=== PATIENT | male | born 1950 | race Caucasian/White ===

== ENCOUNTER → 2017-01-16 | Outpatient (CLI) | payer MEDICARE ==
[~2017-01-16] MED LIST: 'XANAX1 MG PO; ANTIVERT/2525 MG PO; CLONAZEPAM1 MG PO; CYCLOBENZAPRINE5 M3 PO; DAYPRO600 M1 PO; EFFEXOR XR150 M1 PO; HYDROCODONE-IB1 EACH PO; KEFLEX 500 MG E2 CAP PO; LISINOPRIL10 M1 PO; METFORMIN HCL500 MG PO; METFORMIN500 MG PO; MOTRIN600 MG PO; MOTRIN800 MG PO; PREDNISONE10 MG PO; PRISTIQ50 MG PO; TRAMADOL HCL50 MG PO; VENLAFAXINE H37.5 M5 PO; VENLAFAXINE HY150 M2 PO; VICOPROFEN 2001 EACH PO; VITAMIN D50000 I3 PO; XANAX0.5 MG PO; ZESTRIL20 MG PO; ZOFRAN ODT8 MG PO
[2017-01-16 08:56] LABS: BASO # 0.1 10*3/uL (0.0-0.1); BASO % 0.7 % (0.0-1.0); EOS # 0.1 10*3/uL (0.0-0.4); EOS % 1.8 % (1.0-4.0); HEMATOCRIT 42.5 % (42.0-52.0); IG # 0.1 10*3/uL (0.0-0.1); LYMPH # 1.8 10*3/uL (1.3-4.4); MEAN CELL VOLUME 85.5 fl (80.0-94.0); MEAN CORPUSCULAR HGB 28.2 pg (27.0-31.0); MEAN CORPUSCULAR HGB CONC 32.9 g/dl (33.0-37.0); MONO # 0.5 10*3/uL (0.1-1.0); MONO % 6.8 % (3.0-9.0); NEUT # 5.1 10*3/uL (2.3-7.9); NEUT % 65.9 % (47.0-73.0); PLATELET COUNT AUTOMATED 235 10*3/uL (130-400); RED BLOOD COUNT 4.97 10*6/uL (4.50-5.90); RED CELL DISTRI WIDTH 14.6 % (0-14.5); WHITE BLOOD COUNT 7.7 10*3/uL (4.8-10.8)
[2017-01-16 09:05] LABS: PROTHROMBIN TIME 10.2 SECONDS (9.0-12.4)
[2017-01-16 09:18] LABS: ALBUMIN 3.2 gm/dl (3.1-4.5); ALKALINE PHOSPHATASE 96 U/L (45-117); BILIRUBIN, DIRECT < 0.1 mg/dL (0.0-0.2); BILIRUBIN, TOTAL 0.2 mg/dl (0.2-1.0); BUN 22 mg/dl (7-24); CARBON DIOXIDE 24 mmol/L (21-32); CHLORIDE 107 mmol/L (98-107); CHOLESTEROL 176 mg/dL (<200); EST GLOM FILT AFRICAN AMERICAN > 60 ml/min; GLUCOSE 186 mg/dL (65-99); HDL CHOLESTEROL 44 mg/dl (40-60); LDL CHOLESTEROL 87 mg/dL (9-159); PHOSPHOROUS 2.4 mg/dL (2.5-4.9); POTASSIUM 3.9 mmol/L (3.5-5.1); SGOT/AST 17 IU/L (3-35); SGPT/ALT 26 U/L (12-78); SODIUM 143 mmol/L (136-145); TOTAL PROTEIN 7.1 gm/dL (6.4-8.2); TRIGLYCERIDES 226 mg/dl (<150); VLDL CHOLESTEROL 45 mg/dL (6-40)
[2017-01-16 09:54] LABS: HEMOGLOBIN A1c 6.8 % (4.8-5.6)
[2017-01-16 09:59] LABS: FOLIC ACID > 24.00 ng/mL (>5.38)
== END | disposition home or self-care (01) ==
LOC: LAB 08:37
PROVIDERS: Internal Medicine
DX: Z00.00 Encounter for general adult medical examination without abnormal findings (principal); J44.9 Chronic obstructive pulmonary disease, unspecified; E11.9 Type 2 diabetes mellitus without complications; E78.5 Hyperlipidemia, unspecified; M79.609 Pain in unspecified limb; M79.89 Other specified soft tissue disorders

== ENCOUNTER 2017-10-02 10:32 | Emergency (ER) | payer OTHER, MEDICARE ==
[~2017-10-02] VITALS: Ht 182.8 cm; Wt 83.9 kg
[2017-10-02 10:32] VITALS: BP 144/80
[2017-10-02 11:15] LABS: BASO # 0.1 10*3/uL (0.0-0.1); BASO % 0.9 % (0.0-1.0); EOS # 0.2 10*3/uL (0.0-0.4); EOS % 2.4 % (1.0-4.0); HEMATOCRIT 39.9 % (42.0-52.0); HEMOGLOBIN 13.5 g/dl (14.0-18.0); LYMPH # 2.5 10*3/uL (1.3-4.4); LYMPH % 25.4 % (27.0-41.0); MEAN CELL VOLUME 85.4 fl (80.0-94.0); MEAN CORPUSCULAR HGB 28.9 pg (27.0-31.0); MEAN CORPUSCULAR HGB CONC 33.8 g/dl (33.0-37.0); MONO # 0.8 10*3/uL (0.1-1.0); MONO % 8.2 % (3.0-9.0); NEUT # 6.1 10*3/uL (2.3-7.9); NEUT % 62.6 % (47.0-73.0); PLATELET COUNT AUTOMATED 266 10*3/uL (130-400); RED BLOOD COUNT 4.67 10*6/uL (4.50-5.90); RED CELL DISTRI WIDTH 13.7 % (0-14.5); WHITE BLOOD COUNT 9.8 10*3/uL (4.8-10.8)
[2017-10-02 11:23] LABS: ACT PARTIAL THROMBO TIME 24.6 SECONDS (20.8-31.5)
[2017-10-02 11:28] LABS: ALBUMIN 3.3 gm/dl (3.1-4.5); ALKALINE PHOSPHATASE 94 U/L (45-117); BUN 20 mg/dl (7-24); CHLORIDE 106 mmol/L (98-107); CREATININE 0.93 mg/dL (0.70-1.30); POTASSIUM 3.9 mmol/L (3.5-5.1); SGOT/AST 22 IU/L (3-35); SGPT/ALT 24 U/L (12-78); SODIUM 139 mmol/L (136-145); TOTAL PROTEIN 6.9 gm/dL (6.4-8.2)
== END 2017-10-02 11:23 | disposition short-term general hospital (02) ==
LOC: ED 10:32
PROVIDERS: Emergency Medicine
DX: S01.01XA Laceration without foreign body of scalp, initial encounter (principal); S09.90XA Unspecified injury of head, initial encounter; M25.512 Pain in left shoulder; G89.29 Other chronic pain; E78.5 Hyperlipidemia, unspecified; E11.9 Type 2 diabetes mellitus without complications; E66.9 Obesity, unspecified; Z79.899 Other long term (current) drug therapy; Z90.89 Acquired absence of other organs; W22.8XXA Striking against or struck by other objects, initial encounter; Y93.89 Activity, other specified; Y92.69 Other specified industrial and construction area as the place of occurrence of the external cause; Y99.9 Unspecified external cause status

== ENCOUNTER 2017-10-07 13:02 | Emergency (ER) | payer MEDICARE ==
[~2017-10-07] VITALS: Ht 187.9 cm; Wt 113.4 kg
[2017-10-07 13:07] VITALS: BP 132/70
== END 2017-10-07 14:51 | disposition home or self-care (01) ==
LOC: ED 13:02
DX: S52.022A Displaced fracture of olecranon process without intraarticular extension of left ulna, initial encounter for closed fracture (principal); F41.9 Anxiety disorder, unspecified; G89.29 Other chronic pain; E11.9 Type 2 diabetes mellitus without complications; E78.5 Hyperlipidemia, unspecified; I10 Essential (primary) hypertension; F32.9 Major depressive disorder, single episode, unspecified; F43.10 Post-traumatic stress disorder, unspecified; Z79.899 Other long term (current) drug therapy; Z90.89 Acquired absence of other organs; V83.9XXA Unspecified occupant of special industrial vehicle injured in nontraffic accident, initial encounter; Y93.89 Activity, other specified; Y92.89 Other specified places as the place of occurrence of the external cause; Y99.8 Other external cause status

== ENCOUNTER 2018-01-27 15:07 | Inpatient (IN) | payer MEDICARE ==
[~2018-01-27] VITALS: Ht 180.3 cm; Wt 114.3 kg
[2018-01-27] VITALS (7 sets, daily range): BP systolic 140–200; BP diastolic 55–80
--- NOTE | ~2018-01-27 | CON ---
[place], [place] REPORT OF CONSULTATION NAME: [id number] UNIT #: [id number] ROOM: 406 DOCTOR: JUNIOR EARL MD BIRTHDATE: [birth year] DOS: 01/28/2018 REASON FOR CONSULTATION: Abnormal EKG and chest pain. HISTORY OF PRESENT ILLNESS: The patient, a 67-year-old gentleman with history of hypertension, diabetes, who presented to the hospital with chest pain. Apparently, he woke up with chest pain in the morning in the midsternal area. He described this pain as a constant burning pain in the epigastric area, similar to his previous acid reflux. This pain lasted for several minutes and relieved on its own. He has a history of acid reflux and peptic ulcer disease, but does not take any medications. He presented to the hospital for further evaluation. Cardiology was consulted due to his chest pain and also sinus bradycardia noted on EKG. At the time of my examination, the patient is alert, oriented. Denies any dizziness, chest pain. No palpitations, no dizziness, no orthopnea, no PND. No bladder or bowel symptoms. No nausea, vomiting, or diarrhea. No tingling, numbness or weakness. No headache. No dizziness. No cough or hemoptysis. REVIEW OF SYSTEMS: Review of the 10 system negative except as mentioned above. PAST MEDICAL HISTORY: 1. Hypertension. 2. Acid reflux. 3. Sinus bradycardia. 4. Diabetes type 2. 5. Dyslipidemia. 6. History of PTSD. PAST SURGICAL HISTORY: Tonsillectomy and a decompression of the ulnar nerve. SOCIAL HISTORY: The patient does not smoke or drink, does not use illicit drugs. FAMILY HISTORY: Father from gunshot wound. Mother had a stroke. ALLERGIES: No known drug allergies. HOME MEDICATIONS: Reviewed. Pertinent cardiac medications include lisinopril. PHYSICAL EXAMINATION: VITAL SIGNS: Blood pressure 150/70, pulse 84, respiration rate 20, weight 114 pounds, BMI 35. GENERAL: Alert, comfortable, in no acute distress. HEENT: Pupils round, equal. No jaundice. Tongue was moist and pharynx was clear. NECK: Supple, no distended neck veins, no carotid bruit. CHEST: Symmetrical, nontender. LUNGS: Clear to auscultation bilaterally. HEART: Regular rhythm, no S3, no palpable thrills. ABDOMEN: Benign, nontender. Bowel sounds normal. [place], [place] REPORT OF CONSULTATION NAME: FELIPA DINERO UNIT #: [id number] ROOM: [facility] DOCTOR: JUNIOR EARL MD BIRTHDATE: [birth year] EXTREMITIES: Showed no edema. Distal pulses palpable. SKIN: Warm and dry. No cyanosis, no clubbing. RECTAL: Deferred. GENITOURINARY: Deferred. PSYCHIATRIC: The patient is alert, oriented. REVIEW OF THE DIAGNOSTIC TESTS: EKG showed sinus rhythm, sinus bradycardia. His TSH was normal. Troponin was normal. CK, CK-MB normal. Potassium 4, creatinine 0.88. Hemoglobin 13.3. IMPRESSION: 1. Chest pain, atypical, appears to be gastrointestinal related. 2. Sinus bradycardia, asymptomatic, thyroid function tests are normal. The patient was not on any AV blocking medications and avoid AV blocking medications. If the patient develops symptomatic bradycardia in the future, he will need a permanent pacemaker. 3. Hypertension. Monitor his blood pressures. 4. Diabetes type 2. 5. Peptic ulcer disease. 6. Non-morbid obesity. RECOMMENDATIONS: 1. Continue current medications. Risk factor modification was discussed. 2. The patient can be discharged home from a cardiac standpoint today. If he stays in the hospital today, I would recommend exercise nuclear stress test due to his coronary artery disease risk factors including diabetes. If the patient is discharged, this can be done as outpatient. JUNIOR EARL MD CM:CONSTR:REPORT OF CONSULTATION 0637 01/29/18 2010 interface
[2018-01-27 15:32] LABS: BASO # 0.1 10*3/uL (0.0-0.1); BASO % 0.7 % (0.0-1.0); EOS # 0.2 10*3/uL (0.0-0.4); EOS % 2.3 % (1.0-4.0); HEMATOCRIT 41.4 % (42.0-52.0); HEMOGLOBIN 13.3 g/dl (14.0-18.0); LYMPH # 2.2 10*3/uL (1.3-4.4); LYMPH % 22.6 % (27.0-41.0); MEAN CORPUSCULAR HGB 26.3 pg (27.0-31.0); MEAN CORPUSCULAR HGB CONC 32.1 g/dl (33.0-37.0); MEAN PLATELET VOLUME 10.5 fl (9.6-12.3); MONO # 0.6 10*3/uL (0.1-1.0); MONO % 6.3 % (3.0-9.0); NEUT # 6.7 10*3/uL (2.3-7.9); NEUT % 67.6 % (47.0-73.0); PLATELET COUNT AUTOMATED 273 10*3/uL (130-400); RED BLOOD COUNT 5.05 10*6/uL (4.50-5.90); RED CELL DISTRI WIDTH 15.8 % (0-14.5); WHITE BLOOD COUNT 9.9 10*3/uL (4.8-10.8)
[2018-01-27 15:41] LABS: ACT PARTIAL THROMBO TIME 24.5 SECONDS (20.8-31.5)
[2018-01-27 15:57] LABS: ALBUMIN 3.3 gm/dl (3.1-4.5); ALKALINE PHOSPHATASE 90 U/L (45-117); BUN 21 mg/dl (7-24); CHLORIDE 104 mmol/L (98-107); CREATININE 0.96 mg/dL (0.70-1.30); POTASSIUM 3.6 mmol/L (3.5-5.1); SGOT/AST 18 IU/L (3-35); SGPT/ALT 22 U/L (12-78); SODIUM 138 mmol/L (136-145); TOTAL PROTEIN 7.2 gm/dL (6.4-8.2)
[2018-01-27 16:01] LABS: TROPONIN I < 0.015 ng/ml (<0.045)
[2018-01-27] MEDS ORDERED: EFFEXOR XR75 M1 PO (20:58)
[2018-01-27] MEDS ORDERED: XANAX0.5 MG PO (20:59)
[2018-01-27] MEDS ORDERED: ABILIFY10 MG PO (21:00)
[2018-01-27] MEDS ORDERED: VITAMIN B COMP1 EAC1 PO (21:07)
[2018-01-28 03:54] VITALS: BP 135/58
[2018-01-28 07:53] LABS: BASO # 0.1 10*3/uL (0.0-0.1); BASO % 0.7 % (0.0-1.0); EOS # 0.2 10*3/uL (0.0-0.4); EOS % 2.5 % (1.0-4.0); HEMATOCRIT 41.7 % (42.0-52.0); HEMOGLOBIN 13.3 g/dl (14.0-18.0); LYMPH # 1.5 10*3/uL (1.3-4.4); LYMPH % 19.6 % (27.0-41.0); MEAN CELL VOLUME 81.9 fl (80.0-94.0); MEAN CORPUSCULAR HGB 26.1 pg (27.0-31.0); MEAN CORPUSCULAR HGB CONC 31.9 g/dl (33.0-37.0); MEAN PLATELET VOLUME 10.7 fl (9.6-12.3); MONO # 0.5 10*3/uL (0.1-1.0); MONO % 6.3 % (3.0-9.0); NEUT # 5.2 10*3/uL (2.3-7.9); NEUT % 70.2 % (47.0-73.0); PLATELET COUNT AUTOMATED 237 10*3/uL (130-400); RED BLOOD COUNT 5.09 10*6/uL (4.50-5.90); RED CELL DISTRI WIDTH 15.8 % (0-14.5); WHITE BLOOD COUNT 7.5 10*3/uL (4.8-10.8)
[2018-01-28 08:00] VITALS: BP 150/74
[2018-01-28 08:19] LABS: BUN 21 mg/dl (7-24); CHLORIDE 106 mmol/L (98-107); CHOLESTEROL 185 mg/dL (<200); CREATININE 0.88 mg/dL (0.70-1.30); FREE T4 0.97 ng/dl (0.76-1.46); HDL CHOLESTEROL 33 mg/dl (40-60); LDL CHOLESTEROL 113 mg/dL (9-159); PHOSPHOROUS 2.8 mg/dL (2.5-4.9); SODIUM 141 mmol/L (136-145); TRIGLYCERIDES 193 mg/dl (<150); VLDL CHOLESTEROL 39 mg/dL (6-40)
[2018-01-28 08:31] LABS: ACT PARTIAL THROMBO TIME 24.9 SECONDS (20.8-31.5)
[2018-01-28 09:19] LABS: VITAMIN D, 25-HYDROXY 25.8 ng/mL (30-100)
== END 2018-01-28 12:58 | disposition home or self-care (01) | DRG 205 ==
LOC: ED 15:07 → EDHOLD 17:37 → 4E 17:44
PROVIDERS: Emergency Medicine; Internal Medicine
DX: M94.0 Chondrocostal junction syndrome [Tietze] (principal); J18.9 Pneumonia, unspecified organism; I44.2 Atrioventricular block, complete; E44.0 Moderate protein-calorie malnutrition; E11.69 Type 2 diabetes mellitus with other specified complication; J44.9 Chronic obstructive pulmonary disease, unspecified; F33.9 Major depressive disorder, recurrent, unspecified; I10 Essential (primary) hypertension; E66.01 Morbid (severe) obesity due to excess calories; D64.9 Anemia, unspecified; K21.9 Gastro-esophageal reflux disease without esophagitis; L98.499 Non-pressure chronic ulcer of skin of other sites with unspecified severity; E78.5 Hyperlipidemia, unspecified; G89.29 Other chronic pain; F41.9 Anxiety disorder, unspecified; E55.9 Vitamin D deficiency, unspecified; F43.10 Post-traumatic stress disorder, unspecified; Z87.11 Personal history of peptic ulcer disease; Z79.899 Other long term (current) drug therapy; Z91.5 Personal history of self-harm; Z82.3 Family history of stroke; Z81.8 Family history of other mental and behavioral disorders; Z68.35 Body mass index [BMI] 35.0-35.9, adult

== ENCOUNTER → 2018-02-04 | Outpatient (CLI) | payer MEDICARE ==
[~2018-02-04] MED LIST changes: +ABILIFY10 MG PO; +EFFEXOR XR75 M1 PO; +VITAMIN B COMP1 EAC1 PO
--- NOTE | ~2018-02-04 | ST ---
[place], [place] EXERCISE STRESS TEST REPORT NAME: FELIPA DINERO [facility] #: [id number] UNIT #: [id number] ROOM: DOCTOR: LEEROY KENT MD BIRTHDATE: [birth year] DOS: 02/04/2018 PHARMACOLOGIC STRESS TEST. INDICATIONS: Chest discomfort. PROCEDURE: The patient was given rapid infusion of regadenoson 0.4 mg intravenously followed by a saline flush. The resting electrocardiogram showed sinus bradycardia with rare PVCs. During the infusion, he experienced dyspnea, but no other significant symptoms. He had a normal heart rate increase from a resting heart rate of 53 to a peak of 70 beats per minute. The resting blood pressure of 128/62 fell to 102/68. He had no diagnostic electrocardiographic changes. Forty seconds after the infusion of regadenoson, he was given radionuclide intravenously. IMPRESSION: 1. Well-tolerated infusion of regadenoson. 2. Radionuclide administered. Please see the separate imaging report for further details of the patient's stress test results. LEEROY KENT MD CM:STRESS:EXERCISE STRESS TEST REPORT [id number] LEEROY KENT MD
== END | disposition home or self-care (01) ==
LOC: CARD 01:27
DX: R07.89 Other chest pain (principal)

== ENCOUNTER 2018-02-12 15:01 | Emergency (ER) | payer MEDICARE ==
[~2018-02-12] VITALS: Ht 180.3 cm; Wt 114.3 kg
[2018-02-12] MEDS ORDERED: AMOXICILLIN500 M2 PO (15:18)
[2018-02-12 15:19] VITALS: BP 156/62
[2018-02-12] MEDS ORDERED: PROAIR HFA8.5 GM INH (16:30)
[2018-02-12] MEDS ORDERED: ZITHROMAX250 MG PO (16:30)
[2018-02-12] MEDS ORDERED: PREDNISONE20 M1 PO (16:30)
== END 2018-02-12 16:42 | disposition home or self-care (01) ==
LOC: ED 15:01
DX: J20.9 Acute bronchitis, unspecified (principal); Z87.891 Personal history of nicotine dependence; Z98.890 Other specified postprocedural states; Z90.89 Acquired absence of other organs; Z79.899 Other long term (current) drug therapy

== ENCOUNTER → 2018-04-05 | Day surgery (SDC) | payer MEDICARE ==
[~2018-04-05] VITALS: Ht 180.3 cm; Wt 114.3 kg
[~2018-04-05] MED LIST changes: +AMOXICILLIN500 M2 PO; +OMEPRAZOLE40 MG PO; +PREDNISONE20 M1 PO; +PROAIR HFA8.5 GM INH; +VITAMIN D400 I1 PO; +ZITHROMAX250 MG PO
--- NOTE | ~2018-04-05 | PROC NOTE ---
[place], [place] PROCEDURE NOTE NAME: [id number] UNIT #: [id number] ROOM: DOCTOR: RADHA CURRAN MD BIRTHDATE: [birth year] DOS: 04/05/2018 PROCEDURE: 1. Esophagogastroduodenoscopy and biopsy. 2. Colonoscopy. INDICATION: Abdominal pain and colon cancer screening. An informed consent was obtained from the patient after the indication of procedures, the alternatives and potential complications were explained to him. PROCEDURE MEDICATION: Sedation was administered by Anesthesiology Department. Scope used was Olympus pediatric colonoscope variable stiffness GIF-180, that insertion with upper endoscopy was to the descending duodenum and with the colonoscopy was to the cecum, which was identified by the usual landmarks, the appendiceal orifice, ileocecal valve and triangular fold, in addition to transillumination in the right lower quadrant. FINDINGS: After adequate sedation, the patient was placed in left lateral decubitus position. The scope was introduced under direct visualization through the upper esophageal sphincter and into the esophagus. The esophageal mucosa appeared normal with no ulcerations or strictures. The lower esophageal sphincter was identified at 38 cm from incisors. Stomach was then intubated. Gastric mucosa inspected. Three small ulcers with a clean base were noted in the antrum. Biopsies were obtained. The remaining gastric mucosa was within normal range including retroflexed views in the fundus. The pylorus was intubated easily. The duodenal bulb and descending duodenum were within normal range. The scope was then withdrawn after the stomach was decompressed. We then proceeded with the colonoscopy. Rectal examination showed a diminished sphincter tone and no external hemorrhoids. Scope was introduced into the rectum, then advanced to the cecum with no difficulty. The prep was adequate. The colon mucosa appeared normal with no evidence of polyps, diverticular ulcerations. Retroflexed views in the rectum showed grade 2 internal hemorrhoids. Scope was then withdrawn after the rectum was decompressed. The patient tolerated the procedure well. IMPRESSION: 1. Antral ulcers x 2, biopsies obtained. 2. Normal upper GI tract otherwise. 3. Normal colon mucosa. No polyps seen. 4. Internal hemorrhoids. PLAN: We will review the histopathology reports and treat the patient accordingly. The patient will be started on omeprazole 40 mg daily. Office followup will be scheduled in 2-3 weeks. Repeat screening colonoscopy is advised in 10 years. [place], [place] PROCEDURE NOTE NAME: FELIPA DINERO UNIT #: [id number] ROOM: DOCTOR: RADHA CURRAN MD BIRTHDATE: [birth year] RADHA CURRAN MD CM:PROCNOTE:PROCEDURE NOTE [id number] MARIA L CURRAN MD
--- NOTE | ~2018-04-05 | CON ---
[place], [place] REPORT OF CONSULTATION [id number] UN[facility] #: [id number] ROOM: DOCTOR: RADHA CURRAN MD BIRTHDATE: [birth year] DOS: 04/05/2018 PROCEDURE: 1. Esophagogastroduodenoscopy and biopsy. 2. Colonoscopy. INDICATION: Abdominal pain and colon cancer screening. An informed consent was obtained from the patient after the indication of procedures, the alternatives and potential complications were explained to him. PROCEDURE MEDICATION: Sedation was administered by Anesthesiology Department. Scope used was Olympus pediatric colonoscope variable stiffness GIF-180, that insertion with upper endoscopy was to the descending duodenum and with the colonoscopy was to the cecum, which was identified by the usual landmarks, the appendiceal orifice, ileocecal valve and triangular fold, in addition to transillumination in the right lower quadrant. FINDINGS: After adequate sedation, the patient was placed in left lateral decubitus position. The scope was introduced under direct visualization through the upper esophageal sphincter and into the esophagus. The esophageal mucosa appeared normal with no ulcerations or strictures. The lower esophageal sphincter was identified at 38 cm from incisors. Stomach was then intubated. Gastric mucosa inspected. Three small ulcers with a clean base were noted in the antrum. Biopsies were obtained. The remaining gastric mucosa was within normal range including retroflexed views in the fundus. The pylorus was intubated easily. The duodenal bulb and descending duodenum were within normal range. The scope was then withdrawn after the stomach was decompressed. We then proceeded with the colonoscopy. Rectal examination showed a diminished sphincter tone and no external hemorrhoids. Scope was introduced into the rectum, then advanced to the cecum with no difficulty. The prep was adequate. The colon mucosa appeared normal with no evidence of polyps, diverticular ulcerations. Retroflexed views in the rectum showed grade 2 internal hemorrhoids. Scope was then withdrawn after the rectum was decompressed. The patient tolerated the procedure well. IMPRESSION: 1. Antral ulcers x 2, biopsies obtained. 2. Normal upper GI tract otherwise. 3. Normal colon mucosa. No polyps seen. 4. Internal hemorrhoids. PLAN: We will review the histopathology reports and treat the patient accordingly. The patient will be started on omeprazole 40 mg daily. Office followup will be scheduled in 2-3 weeks. Repeat screening colonoscopy is advised in 10 years. [place], [place] REPORT OF CONSULTATION NAME: FELIPA DINERO UNIT #: [id number] ROOM: DOCTOR: RADHA CURRAN MD BIRTHDATE: [birth year] BASEL MD MAGDY CM:CONSTR:REPORT OF CONSULTATION 8 04/08/18 1326 MANUELITO PATIÑO. MARIA L VEGAS
[2018-04-05 07:45] VITALS: BP 159/68
[2018-04-05 09:05] VITALS: BP 126/55
[2018-04-05 09:20] VITALS: BP 127/65
[2018-04-05 09:35] VITALS: BP 148/67
== END | disposition home or self-care (01) ==
LOC: SDC 04-02 12:30
DX: Z12.11 Encounter for screening for malignant neoplasm of colon (principal); K29.50 Unspecified chronic gastritis without bleeding; F41.9 Anxiety disorder, unspecified; F32.9 Major depressive disorder, single episode, unspecified; E11.9 Type 2 diabetes mellitus without complications; J44.9 Chronic obstructive pulmonary disease, unspecified; Z98.890 Other specified postprocedural states; Z83.3 Family history of diabetes mellitus; Z82.49 Family history of ischemic heart disease and other diseases of the circulatory system; I10 Essential (primary) hypertension; Z87.891 Personal history of nicotine dependence; K64.1 Second degree hemorrhoids
CPT/HCPCS: 00813; 43239; G0121

== ENCOUNTER 2018-11-14 23:11 | Emergency (ER) | payer MEDICARE ==
[~2018-11-14] VITALS: Ht 154.9 cm; Wt 112.0 kg
--- NOTE | ~2018-11-14 | EKG ---
[place], [place] ELECTROCARDIOGRAM REPORT NAME: FELIPA DINERO UNIT #: [id number] ROOM: DOCTOR: EPIPHANY DRAFT REPORT BIRTHDATE: [birth year] [facility] Test Date: 2018-11-14 Test Time: 23:31:44 Pat Name: FELIPA DINERO Department: ER Room: 9 Gender: M Shampooer: Tequila Rosas : 1950 Requested By: TOMMIE CASTILLO Order Number: [id number] Reading MD: Juan Rodríguez MD Measurements Intervals [place] Rate: 62 P: 20 [place]: 157 QRS: -25 QRSD: 102 T: 31 QT: 375 QTc: 381 Interpretive Statements Sinus rhythm Borderline left axis deviation Borderline T wave abnormalities Electronically Signed On 11-15-2018 15:59:09 PST by Juan Rodríguez MD CM:EKGRPT:ELECTROCARDIOGRAM REPORT [id number] TOMMIE APPIAH DRAFT REPORT TOMMIE CASTILLO DO
[2018-11-14 23:13] VITALS: BP 164/58
[2018-11-14 23:27] LABS: BASO % 0.5 % (0.0-1.0); EOS # 0.2 10*3/uL (0.0-0.4); EOS % 2.1 % (1.0-4.0); HEMATOCRIT 41.3 % (42.0-52.0); HEMOGLOBIN 13.9 g/dl (14.0-18.0); LYMPH # 0.9 10*3/uL (1.3-4.4); LYMPH % 10.8 % (27.0-41.0); MEAN CELL VOLUME 86.9 fl (80.0-94.0); MEAN CORPUSCULAR HGB 29.3 pg (27.0-31.0); MEAN CORPUSCULAR HGB CONC 33.7 g/dl (33.0-37.0); MONO # 0.7 10*3/uL (0.1-1.0); NEUT # 6.4 10*3/uL (2.3-7.9); PLATELET COUNT AUTOMATED 212 10*3/uL (130-400); RED BLOOD COUNT 4.75 10*6/uL (4.50-5.90); RED CELL DISTRI WIDTH 13.8 % (0-14.5); WHITE BLOOD COUNT 8.2 10*3/uL (4.8-10.8)
[2018-11-14 23:45] LABS: ALBUMIN 3.4 gm/dl (3.1-4.5); ALKALINE PHOSPHATASE 94 U/L (45-117); BUN 17 mg/dl (7-24); CHLORIDE 107 mmol/L (98-107); CREATININE 0.91 mg/dL (0.70-1.30); POTASSIUM 3.6 mmol/L (3.5-5.1); SGOT/AST 18 IU/L (3-35); SGPT/ALT 22 U/L (12-78); SODIUM 139 mmol/L (136-145)
[2018-11-14 23:46] LABS: TROPONIN I < 0.015 ng/ml (<0.045)
== END 2018-11-15 00:08 | disposition home or self-care (01) ==
LOC: ED 23:11
PROVIDERS: Student in an Organized Health Care Education/Training Program
DX: F41.9 Anxiety disorder, unspecified (principal); R06.02 Shortness of breath; R09.81 Nasal congestion; R05 Cough; J44.9 Chronic obstructive pulmonary disease, unspecified; I10 Essential (primary) hypertension; K21.9 Gastro-esophageal reflux disease without esophagitis; E66.01 Morbid (severe) obesity due to excess calories; E11.9 Type 2 diabetes mellitus without complications; Z79.899 Other long term (current) drug therapy; Z87.891 Personal history of nicotine dependence

== ENCOUNTER 2019-06-18 05:49 | Inpatient (IN) | payer MEDICARE ==
[2019-06-18] VITALS (7 sets, daily range): BP systolic 128–183; BP diastolic 58–91
[~2019-06-18] VITALS: Ht 180.3 cm; Wt 105.7 kg
--- NOTE | ~2019-06-18 | EKG ---
[place], [place] ELECTROCARDIOGRAM REPORT NAME: FELIPA DINERO UNIT #: [id number] ROOM: 528 DOCTOR: SHEN DRAFT REPORT BIRTHDATE: [birth year] [facility] Test Date: 2019-06-18 Test Time: 05:54:12 Pat Name: FELIPA DINERO Department: Room: 528 Gender: M Certified Court Interpreter: : 1950 Requested By: CHOCO RICKETTS Order Number: [id number] Reading MD: Purvi Joseph Measurements Intervals [place] Rate: 50 P: 4 [place]: 159 QRS: -25 QRSD: 107 T: 6 QT: 442 QTc: 403 Interpretive Statements Sinus rhythm Borderline left axis deviation Compared to ECG 11/14/2018 23:31:44 T-wave abnormality no longer present Electronically Signed On 06-19-2019 4:16:58 PDT by Purvi Joseph CM:EKGRPT:ELECTROCARDIOGRAM REPORT [id number] CHOCO RICKETTS MD EPIPHANY DRAFT REPORT CHOCO RICKETTS MD
--- NOTE | ~2019-06-18 | PR ---
[place], [place] PROGRESS NOTE NAME: FELIPA DINERO UNIT #: [id number] ROOM: 528 DOCTOR: RAJAT BENNETT,JUNIOR BIRTHDATE: [birth year] DOS: 06/19/2019 CARDIOLOGY FOLLOWUP NOTE REASON FOR VISIT: Shortness of breath and hypertension. SUBJECTIVE: The patient significantly feeling better. Denies any shortness of breath or palpitations. No PND or orthopnea. No nausea or vomiting. No bladder or bowel symptoms. He is noted to have occasional sinus bradycardia, especially in the nighttime. REVIEW OF SYSTEMS: Review of 8 systems negative except as mentioned above. PHYSICAL EXAMINATION: VITAL SIGNS: Blood pressure 124/72, pulse 64, respiratory rate is 20. RHYTHM STRIPS: The patient in sinus rhythm, occasional sinus bradycardia, mostly at night. GENERAL: Alert, comfortable, in no acute distress. NECK: Supple, no distended neck veins, no carotid bruit. HEENT: Tongue was moist and pharynx clear. CHEST: Symmetrical, nontender. LUNGS: Clear to auscultation bilaterally. HEART: Regular rhythm, no S3, no palpable thrills. ABDOMEN: Obese, nontender. Bowel sounds normal. EXTREMITIES: Showed no edema. Distal pulses palpable. SKIN: Warm and dry. No cyanosis, no clubbing. RECTAL: Deferred. NEUROLOGIC: The patient is alert with no focal neurologic deficit. IMPRESSION: 1. Chronic obstructive pulmonary disease exacerbation, stable. 2. Hypertension, stable after adding hydrochlorothiazide. 3. Sinus bradycardia, asymptomatic, likely secondary to sleep apnea. 4. Mild lower extremity edema, resolved after hydrochlorothiazide. 5. Morbid obesity. RECOMMENDATIONS: 1. Continue current medications. 2. A 2D echo is pending. I will review the 2D echo. The case discussed with Dr. Cotto. He can be discharged to home from the cardiac standpoint today and the patient was counseled to be compliant with CPAP and his medications. The patient has no signs or symptoms of congestive heart failure during this admission. A chest x-ray showed no CHF and BNP levels are normal. His mild edema is probably dependent and resolved after adding hydrochlorothiazide. [place], [place] PROGRESS NOTE NAME: FELIPA DINERO UNIT #: [id number] ROOM: 528 DOCTOR: JUNIOR EARL MD BIRTHDATE: [birth year] JUNIOR EARL MD CM:PNTRANS 0032 1 JUNIOR EARL MD 06/20/19121 interface
--- NOTE | ~2019-06-18 | EKG ---
[place], [place] ELECTROCARDIOGRAM REPORT NAME: FELIPA DINERO UNIT #: [id number] ROOM: 528 DOCTOR: SHEN DRAFT REPORT BIRTHDATE: [birth year] [facility] Test Date: 2019-06-18 Test Time: 11:28:06 Pat Name: FELIPA DINERO Department: Room: 528 Gender: M Kitchen Food Server: Josie Calero : 1950 Requested By: CHOCO RICKETTS Order Number: [id number] Reading MD: Purvi Joseph Measurements Intervals [place] Rate: 56 P: 5 [place]: 162 QRS: -36 QRSD: 102 T: -3 QT: 409 QTc: 395 Interpretive Statements Sinus rhythm Left ventricular hypertrophy Baseline wander in lead(s) V4 Compared to ECG 11/14/2018 23:31:44 Left ventricular hypertrophy now present T-wave abnormality no longer present Electronically Signed On 06-19-2019 4:18:55 PDT by Purvi Joseph CM:EKGRPT:ELECTROCARDIOGRAM REPORT [id number] 0418 CHOCO RICKETTS MD EPIPHANY DRAFT REPORT CHOCO RICKETTS MD
--- NOTE | ~2019-06-18 | EKG ---
[place], [place] ELECTROCARDIOGRAM REPORT NAME: FELIPA DINERO UNIT #: [id number] ROOM: 528 DOCTOR: SHEN DRAFT REPORT BIRTHDATE: [birth year] [facility] Test Date: 2019-06-18 Test Time: 08:48:47 Pat Name: FELIPA DINERO Department: Room: 528 Gender: M Payroll Benefits Clerk: Josie Calero : 1950 Requested By: CHOCO RICKETTS Order Number: [id number] Reading MD: Purvi Joseph Measurements Intervals [place] Rate: 78 P: [place]: QRS: -27 QRSD: 96 T: 28 QT: 401 QTc: 457 Interpretive Statements [place] rhythm vs. Accelerated junctional rhythm Abnormal R-wave progression, early transition Inferior infarct, old Compared to ECG 11/14/2018 23:31:44 Accelerated junctional rhythm now present Myocardial infarct finding now present Sinus rhythm no longer present T-wave abnormality no longer present Electronically Signed On 06-19-2019 4:18:22 PDT by Purvi Joseph CM:EKGRPT:ELECTROCARDIOGRAM REPORT [id number] 0418 CHOCO HENDERSONANY DRAFT REPORT CHOCO RICKETTS MD
[2019-06-18 06:11] LABS: BASO # 0.1 10*3/uL (0.0-0.1); BASO % 1.1 % (0.0-1.0); EOS # 0.3 10*3/uL (0.0-0.4); EOS % 4.2 % (1.0-4.0); HEMATOCRIT 44.5 % (42.0-52.0); HEMOGLOBIN 14.3 g/dl (14.0-18.0); LYMPH % 27.7 % (27.0-41.0); MEAN CELL VOLUME 87.4 fl (80.0-94.0); MEAN CORPUSCULAR HGB 28.1 pg (27.0-31.0); MEAN CORPUSCULAR HGB CONC 32.1 g/dl (33.0-37.0); MONO # 0.7 10*3/uL (0.1-1.0); NEUT # 4.2 10*3/uL (2.3-7.9); NEUT % 57.3 % (47.0-73.0); PLATELET COUNT AUTOMATED 213 10*3/uL (130-400); RED BLOOD COUNT 5.09 10*6/uL (4.50-5.90); RED CELL DISTRI WIDTH 14.8 % (0-14.5); WHITE BLOOD COUNT 7.3 10*3/uL (4.8-10.8)
[2019-06-18 06:26] LABS: ALBUMIN 3.6 gm/dl (3.1-4.5); ALKALINE PHOSPHATASE 98 U/L (45-117); BUN 18 mg/dl (7-24); CHLORIDE 106 mmol/L (98-107); CREATININE 0.95 mg/dL (0.70-1.30); POTASSIUM 3.7 mmol/L (3.5-5.1); SGOT/AST 12 IU/L (3-35); SGPT/ALT 16 U/L (12-78); SODIUM 140 mmol/L (136-145); TOTAL PROTEIN 7.3 gm/dL (6.4-8.2)
[2019-06-18 06:28] LABS: TROPONIN I < 0.015 ng/ml (<0.045)
[2019-06-18 06:41] LABS: ACT PARTIAL THROMBO TIME 25.2 SECONDS (20.0-32.1); INTERNATIONAL NORM RATIO 0.9 (2.0-3.5)
--- NOTE | 2019-06-18 07:57 | NUR ---
PATIENT STATES HE FEELS BETTER AFTER BREATHING TREATMENT LUNGS CLEAR BL.
--- NOTE | 2019-06-18 10:15 | NUR ---
A 68, admitted to , under the services of ELIZABETH Hernandez DO with a diagnosis of ACUTE HEART FAILURE/COPD EXACERBATION. Chief complaint is WOKE UP AT 4AM WITH SHORTNESS OF BREATH. Patient arrived via stretcher from ER. Monitor applied. Initial assessment completed. Vital signs taken and recorded. ELIZABETH HERNANDEZ DO notified of admission to the unit. Orders received. See assessment for past medical history, medications and allergies. Patient and/or family oriented to unit. [facility]. Clothing/patient valuable form completed. MIMI MILTON
--- NOTE | 2019-06-18 10:35 | NUR ---
DR. BADILLO AND DR. EARL NOTIFIED OF CONSULT.
[2019-06-18] MEDS ORDERED: EFFEXOR XR150 M1 PO (11:24)
--- NOTE | 2019-06-18 19:00 | NUR ---
REPORT OBTAINED FROM CHRISTINA-RN. PATIENT VOICED NO COMPLAINTS, ALERT & ORIENT. NO DISTRESS NOTED, RESP ARE ERND ON ROOM AIR. BED IS LOCKED IN LOWEST POSITION. CALL LIGHT LEFT WITHIN REACH
--- NOTE | 2019-06-18 22:50 | NUR ---
PATIENT HR NOTED TO BE 40'S. PATIENT IS RESTING QUIETLY IN BED, EYES CLOSED WITH CPAP FROM HOME ON. NO DISTRESS NOTED, RESP ARE ERND. CALL LIGHT LEFT WITHIN REACH
[2019-06-19] VITALS: BP 167/81
--- NOTE | 2019-06-19 04:00 | NUR ---
PATIENT ASLEEP, EYES CLOSED. NO DISTRESS NOTED. CALL LIGHT WITHIN REACH
--- NOTE | 2019-06-19 05:05 | NUR ---
24 HR chart check completed.
[2019-06-19 06:50] LABS: BASO # 0.1 10*3/uL (0.0-0.1); BASO % 0.9 % (0.0-1.0); EOS # 0.2 10*3/uL (0.0-0.4); HEMATOCRIT 47.1 % (42.0-52.0); HEMOGLOBIN 15.1 g/dl (14.0-18.0); LYMPH # 1.8 10*3/uL (1.3-4.4); LYMPH % 22.9 % (27.0-41.0); MEAN CELL VOLUME 87.9 fl (80.0-94.0); MEAN CORPUSCULAR HGB 28.2 pg (27.0-31.0); MEAN CORPUSCULAR HGB CONC 32.1 g/dl (33.0-37.0); MEAN PLATELET VOLUME 11.3 fl (9.6-12.3); MONO # 0.7 10*3/uL (0.1-1.0); MONO % 8.9 % (3.0-9.0); NEUT # 4.9 10*3/uL (2.3-7.9); NEUT % 63.4 % (47.0-73.0); PLATELET COUNT AUTOMATED 230 10*3/uL (130-400); RED BLOOD COUNT 5.36 10*6/uL (4.50-5.90); RED CELL DISTRI WIDTH 15.1 % (0-14.5); WHITE BLOOD COUNT 7.8 10*3/uL (4.8-10.8)
[2019-06-19 07:18] LABS: ALBUMIN 3.5 gm/dl (3.1-4.5); ALKALINE PHOSPHATASE 87 U/L (45-117); BUN 22 mg/dl (7-24); CHLORIDE 104 mmol/L (98-107); CHOLESTEROL 213 mg/dL (<200); CREATININE 0.92 mg/dL (0.70-1.30); FREE T4 1.07 ng/dl (0.76-1.46); HDL CHOLESTEROL 37 mg/dl (40-60); LDL CHOLESTEROL 137 mg/dL (9-159); PHOSPHOROUS 3.6 mg/dL (2.5-4.9); POTASSIUM 3.7 mmol/L (3.5-5.1); SGOT/AST 17 IU/L (3-35); SGPT/ALT 17 U/L (12-78); SODIUM 140 mmol/L (136-145); TOTAL PROTEIN 7.4 gm/dL (6.4-8.2); TRIGLYCERIDES 197 mg/dl (<150); VLDL CHOLESTEROL 39 mg/dL (6-40)
[2019-06-19 07:53] LABS: VITAMIN D, 25-HYDROXY 33.9 ng/mL (30-100)
[2019-06-19 08:00] VITALS: BP 124/72; BP 140/80
--- NOTE | 2019-06-19 10:00 | NUR ---
ECHO BEING DONE AT THIS TIME.
[2019-06-19 12:00] VITALS: BP 168/69
--- NOTE | 2019-06-19 12:19 | NUR ---
Sleeve [place] Feller in to talk to patient. Patient states lives at HOME with . There are FEW steps in the home. Physician: [facility] Pharmacy: [facility] Home health services: NONE Patient's level of ADLs: INDEPENDENT Patient has working utilities: YES DME: CPAP Follow-up physician's appointment after d/c: WILL BE MADE BY HOSPITALIST NURSE DIRECTOR ON DISCHARGE Does patient want to access PORTAL?: NO Discharge plan PT LIVES AT HOME WITH HIS AND IS INDEPENDENT IN HIS CARE. DENIES HE WILL HAVE NEEDS ON DISCHARGE. PLANS TO RETURN HOME ON DISCHARGE. WILL CONTINUE TO FOLLOW. WILL TRANSPORT HIM HOME ON DISCHARGE. . DEBRA DAY
[2019-06-19] MEDS ORDERED: HYDR25T PO (14:01)
--- NOTE | 2019-06-19 15:00 | NUR ---
Discharge instructions reviewed with patient/family. Patient receptive and verbalizes understanding. Follow-up care arranged. Written instructions given to patient/family. IV site and hall monitor removed. EMILIO PAREDES
== END 2019-06-19 15:00 | disposition home or self-care (01) | DRG 191 ==
LOC: ED 05:49 → EDHOLD 08:36 → 5E 08:36
PROVIDERS: Emergency Medicine Emergency Medical Services; Registered Nurse; ADMIT Internal Medicine
PROC: 5A09357 Assistance with Respiratory Ventilation, Less than 24 Consecutive Hours, Continuous Positive Airway Pressure (ICD-10-PCS; principal; 2019-06-19)
DX: J44.1 Chronic obstructive pulmonary disease with (acute) exacerbation (principal); F33.9 Major depressive disorder, recurrent, unspecified; E44.0 Moderate protein-calorie malnutrition; I11.0 Hypertensive heart disease with heart failure; F41.9 Anxiety disorder, unspecified; G89.29 Other chronic pain; K21.9 Gastro-esophageal reflux disease without esophagitis; F43.10 Post-traumatic stress disorder, unspecified; E11.69 Type 2 diabetes mellitus with other specified complication; E78.5 Hyperlipidemia, unspecified; E55.9 Vitamin D deficiency, unspecified; E66.01 Morbid (severe) obesity due to excess calories; G47.33 Obstructive sleep apnea (adult) (pediatric); E11.65 Type 2 diabetes mellitus with hyperglycemia; Z68.32 Body mass index [BMI] 32.0-32.9, adult; Z87.891 Personal history of nicotine dependence; Z82.3 Family history of stroke; Z79.899 Other long term (current) drug therapy; Z79.84 Long term (current) use of oral hypoglycemic drugs; I50.9 Heart failure, unspecified

== ENCOUNTER 2021-10-21 17:22 | Emergency (ER) | payer MEDICARE ==
[~2021-10-21] VITALS: Wt 113.4 kg
[~2021-10-21 17:22] MED LIST changes: +HYDR25T PO
[2021-10-21 18:00] LABS: BASO % 0.2 % (0.0-1.0); HEMATOCRIT 38.9 % (42.0-52.0); LYMPH # 1.2 10*3/uL (1.3-4.4); LYMPH % 19.1 % (27.0-41.0); MEAN CELL VOLUME 83.1 fl (80.0-94.0); MEAN CORPUSCULAR HGB 28.8 pg (27.0-31.0); MEAN CORPUSCULAR HGB CONC 34.7 g/dl (33.0-37.0); MEAN PLATELET VOLUME 10.9 fl (9.6-12.3); MONO # 0.5 10*3/uL (0.1-1.0); MONO % 8.4 % (3.0-9.0); NEUT # 4.5 10*3/uL (2.3-7.9); NEUT % 72.1 % (47.0-73.0); PLATELET COUNT AUTOMATED 189 10*3/uL (130-400); RED BLOOD COUNT 4.68 10*6/uL (4.50-5.90); RED CELL DISTRI WIDTH 14.9 % (0-14.5); WHITE BLOOD COUNT 6.2 10*3/uL (4.8-10.8)
[2021-10-21 18:14] LABS: ALKALINE PHOSPHATASE 99 U/L (45-117); BUN 10 mg/dl (7-24); CHLORIDE 102 mmol/L (98-107); CPK 124 U/L (39-308); CREATININE 1.07 mg/dL (0.70-1.30); POTASSIUM 3.8 mmol/L (3.5-5.1); SGOT/AST 26 IU/L (3-35); SGPT/ALT 28 U/L (12-78); SODIUM 132 mmol/L (136-145); TOTAL PROTEIN 7.1 gm/dL (6.4-8.2)
[2021-10-21 19:54] VITALS: BP 123/49
== END 2021-10-21 23:33 | disposition home or self-care (01) ==
LOC: ED 17:22
PROVIDERS: Emergency Medicine
DX: U07.1 COVID-19 (principal); J44.9 Chronic obstructive pulmonary disease, unspecified; E11.9 Type 2 diabetes mellitus without complications; I10 Essential (primary) hypertension; E78.5 Hyperlipidemia, unspecified; E66.01 Morbid (severe) obesity due to excess calories; Z87.891 Personal history of nicotine dependence; Z79.899 Other long term (current) drug therapy

== ENCOUNTER 2021-10-26 15:15 | Emergency (ER) | payer MEDICARE ==
[~2021-10-26] VITALS: Ht 180.3 cm; Wt 113.4 kg
[2021-10-26 15:46] VITALS: BP 154/53
== END 2021-10-26 17:10 | disposition left against medical advice (07) ==
LOC: ED 15:15
DX: Z53.21 Procedure and treatment not carried out due to patient leaving prior to being seen by health care provider (principal)

== ENCOUNTER 2021-11-09 16:45 | Inpatient (IN) | payer OTHER ==
[~2021-11-09] VITALS: Ht 180.3 cm; Wt 99.8 kg
[2021-11-09 16:52] VITALS: BP 85/47
[2021-11-10] VITALS: BP 107/63
[2021-11-10 08:00] VITALS: BP 79/40
== END 2021-11-10 18:44 | DRG 177 ==
LOC: ICCU 16:45 → 4E 16:45
PROVIDERS: ADMIT Internal Medicine; ATTEND Internal Medicine
PROC: 5A09357 Assistance with Respiratory Ventilation, Less than 24 Consecutive Hours, Continuous Positive Airway Pressure (ICD-10-PCS; principal; 2021-11-09)
PROC: 5A0935A Assistance with Respiratory Ventilation, Less than 24 Consecutive Hours, High Flow/Velocity Cannula (ICD-10-PCS; 2021-11-09)
DX: U07.1 COVID-19 (principal); J12.82 Pneumonia due to coronavirus disease 2019; J96.01 Acute respiratory failure with hypoxia; J85.0 Gangrene and necrosis of lung; N17.0 Acute kidney failure with tubular necrosis; Z66 Do not resuscitate; E87.2 Acidosis; E87.1 Hypo-osmolality and hyponatremia; E44.0 Moderate protein-calorie malnutrition; Z51.5 Encounter for palliative care; E87.3 Alkalosis; F33.9 Major depressive disorder, recurrent, unspecified; J44.0 Chronic obstructive pulmonary disease with (acute) lower respiratory infection; D64.9 Anemia, unspecified; R73.9 Hyperglycemia, unspecified; R74.01 Elevation of levels of liver transaminase levels; I10 Essential (primary) hypertension; K21.9 Gastro-esophageal reflux disease without esophagitis